=== PATIENT | male | born 1945 | race African-American/Black ===

== ENCOUNTER 2018-02-01 13:04 | Emergency (ER) | payer OTHER ==
[~2018-02-01] VITALS: Ht 172.7 cm; Wt 84.0 kg
[2018-02-01] MEDS ORDERED: SODIUM CHLORIDE 0.9% 500 ML IV ONE (14:15)
[2018-02-01 15:13] LABS: BASOPHILS % 0.5 % (0.0-2.0); EOSINOPHILS % 0.9 % (0.0-5.0); HEMATOCRIT. 41.7 % (42.0-52.0); HEMOGLOBIN. 13.7 g/dL (14.0-18.0); LYMPHOCYTES % 18.3 % (20.0-50.0); MEAN CORPUSCULAR VOLUME 88.5 fL (80.0-94.0); MEAN PLATELET VOLUME 8.1 fl (7.4-10.4); MONOCYTES % 10.3 % (2.0-8.0); PLATELET 239 x1000/uL (130-400); RED BLOOD CELL COUNT 4.71 mill/uL (4.7-6.1); RED CELL DISTRIBUTION WIDTH 14.4 % (11.6-14.6)
[2018-02-01 15:18] LABS: CHLORIDE 111 mEq/L (98-107)
[2018-02-01 15:29] LABS: CREATINE KINASE MB FRACTION 1.3 ng/mL (0.5-3.6)
[2018-02-01 21:22] VITALS: BP 145/79
== END 2018-02-01 21:23 | disposition home or self-care (01) ==
LOC: ER 13:16
DX: R55 Syncope and collapse (principal); F14.10 Cocaine abuse, uncomplicated
CPT/HCPCS: 36415; 70450; 71045; 80053; 82553; 83735; 83880; 84484; 85025; 93005; 96360; 99285; J7040

== ENCOUNTER 2018-07-10 16:52 | Emergency (ER) | payer MEDICAID, OTHER ==
[~2018-07-10] VITALS: Ht 177.8 cm; Wt 84.0 kg
[2018-07-10 16:53] VITALS: BP 130/66
[2018-07-10] MEDS ORDERED: ACETAMINOPHEN 325MG TABLET PO ONE (18:15)
== END 2018-07-10 21:13 | disposition home or self-care (01) ==
LOC: ER 16:52
DX: M25.552 Pain in left hip (principal); M25.562 Pain in left knee; M79.605 Pain in left leg; I51.9 Heart disease, unspecified; F14.10 Cocaine abuse, uncomplicated; Z88.0 Allergy status to penicillin
CPT/HCPCS: 72170; 73552; 73562; 99283